=== PATIENT | female | born 1965 | race Caucasian/White ===

== ENCOUNTER 2020-02-10 08:37 | Outpatient (CLI) | payer OTHER, SELFPAY ==
--- NOTE | ~2020-02-10 | MM_ITS ---
EXAMINATION: MM screening corey BI w oscar HISTORY: Screening mammogram TECHNIQUE: Craniocaudal and mediolateral oblique 3-D tomosynthesis images were obtained and synthetic 2-D images were generated. CAD analysis was submitted and interpreted. COMPARISON: 03/27/2018, 08/16/2016, 09/23/2014 bilateral digital screening mammogram examinations BREAST PARENCHYMAL COMPOSITION: There are scattered areas of fibroglandular density. FINDINGS: Stable approximately 7 mm circumscribed mass in the inner mid right breast. There is no aliya dence of suspicious mass, calcification, or architectural distortion to suggest malignancy in either breast. There has been no suspicious interval change. IMPRESSION: 1. No mammographic evidence of malignancy. 2. Recommend routine screening mammography in one year. BI-RADS Category 2: Benign finding(s). Reviewed, dictated and finalized at location A.
== END 2020-02-10 08:38 | disposition home or self-care (01) ==
LOC: ANHIMG 08:40
PROVIDERS: Visit Provider Obstetrics & Gynecology
DX: Z12.31 Encounter for screening mammogram for malignant neoplasm of breast (principal)
CPT/HCPCS: 77063; 77067

== ENCOUNTER 2020-03-10 15:35 | Outpatient (CLI) | payer OTHER, SELFPAY ==
--- NOTE | ~2020-03-10 | CT_ITS ---
EXAMINATION: CT abdomen pelvis wo/w con DATE: 03/10/2020 16:45 INDICATION: Gross hematuria. TECHNIQUE: Computed tomography (CT) of the abdomen and pelvis was performed without and with intraven ous contrast using a total of 130 mL Omnipaque-350 intravenous contrast with a double-bolus technique for simultaneous opacification of the renal parenchyma and renal collecting system. Automated exposu re control and iterative reconstruction technique were employed. The dose-length product was 2270.09 mGy-cm. COMPARISON: CT abdomen and pelvis 05/01/2018 FINDINGS: The visualized portions of the lung bases demonstrate mild atelectasis. A calcified left lung nodule and calcified left hilar lymph nodes are consistent with old granulomatous disease. No pleural effusi on. Cardiomegaly is noted. No pericardial effusion. There is diffuse hepatic steatosis. There is a 14 mm cyst in the liver. The gallbladder, spleen, pancreas, and left adrenal gland are normal. There is a 16 mm mass in right adrenal gland without change, consistent with an adenoma. There is no urolithi asis. There are cysts in the kidneys measuring up to 2.4 cm on the right. The ureters and bladder are well opacified and are normal. There are no dilated loops of bowel. The appendix is normal. There ar e no pathologically enlarged lymph nodes. There is no free intraperitoneal fluid. There is mild lumba r spondylosis. IMPRESSION: 1. No etiology for hematuria. Reviewed, dictated and finalized at location A.
--- NOTE | ~2020-03-10 | XR_ITS ---
XR abdomen/kub 1V 03/10/2020 16:12 INDICATION: Gross hematuria TECHNIQUE: KUB COMPARISON: 05/01/2018 FINDINGS: Bowel gas pattern is normal. There is no evidence of free air, mass, organomegaly, ascites or obstruction. No abnormal calculi are seen. The bones appear intact. IMPRESSION: 1: No acute abdominal abnormality identified. Reviewed, dictated and finalized at location B.
[2020-03-10 16:23] LABS: Estimated Glomerular Filt Rate > 60
== END 2020-03-10 15:36 | disposition home or self-care (01) ==
PROVIDERS: Visit Provider Nurse Practitioner Adult Health
DX: R31.0 Gross hematuria (principal)
CPT/HCPCS: 74018; 74178; Q9967

== ENCOUNTER 2020-07-17 23:15 | Emergency (ER) | payer OTHER, SELFPAY ==
--- NOTE | ~2020-07-17 | CT_ITS ---
EXAMINATION: CT abdomen pelvis wo con DATE: 07/18/2020 00:43 INDICATION: Right back pain. Right-sided flank pain. TECHNIQUE: Computed tomography (CT) of the abdomen and pelvis was performed without intravenous contr ast. Automated exposure control and iterative reconstruction technique were employed. The dose-length product was 988.10 mGy-cm. COMPARISON: 03/10/2020 FINDINGS: Lung bases are clear. Heart size is normal. No pericardial or pleural effusion. 1.4 cm cyst in the ri ght hepatic lobe. Mild focal hepatic steatosis at the ligamentum teres. Decompressed gallbladder, spl een, pancreas and left adrenal gland are normal. No significant interval change in a 1.6 similar low- attenuation right adrenal adenoma. Couple right renal cysts the largest measuring 1.8 cm. No urolithi asis or hydronephrosis. Bowels including the appendix are normal with no wall thickening or obstructi on. Bladder is normal. The uterus is not identified and has likely been surgically resected. No free intraperitoneal gas or fluid. No pathologically enlarged abdominal or pelvic lymphadenopathy. Mild brandon mbar spondylosis. IMPRESSION: 1. No acute intra-abdominal/pelvic process. Specifically normal gallbladder and appendix and no uroli thiasis. Reviewed, dictated and finalized at location B. NING OPERATOR IMPRESSION: 1. No acute intra-abdominal/pelvic process. Specifically normal gallbladder and appendix and no urolithiasis.
[2020-07-17 23:20] VITALS: BP 167/87; PULSE 70; RESP 16; TEMP 36; O2SAT 100
[2020-07-18 00:02] LABS: Alanine Aminotransferase 36 U/L (4-35); Albumin Level 4.2 g/dL (3.5-5.1); Alkaline Phosphatase 93 U/L (38-126); Anion Gap 6 mmol/L (8-16); Aspartate Amino Transferase 32 U/L (14-36); Bilirubin,Total 0.4 mg/dL (0.2-1.3); Blood Urea Nitrogen 17 mg/dL (7-17); Calcium 9.4 mg/dL (8.4-10.2); Carbon Dioxide 34 mmol/L (22-30); Chloride 99 mmol/L (98-107); Estimated Glomerular Filt Rate > 60; Glucose 103 mg/dL (65-105); Lipase 171 U/L (23-300); Potassium 3.5 mmol/L (3.4-5.0); Sodium 139 mmol/L (137-145)
[2020-07-18 00:09] LABS: Basophils Absolute Auto 0.1 K/mm3 (0.0-0.1); Eosinophils Absolute Auto 0.4 K/mm3 (0-0.3); Eosinophils Percent Auto 3.9 % (0-4.4); Hemoglobin 14.5 g/dL (12.0-15.0); Immature Granulocyte Absolute 0.05 K/mm3 (0.00-0.031); Immature Granulocyte Percent A 0.5 % (0-0.5); Lymphocytes Percent Auto 34.4 % (18.3-44.2); Mean Corpuscular HGB Conc 34.5 g/dl (32-36); Mean Corpuscular Hemoglobin 32.2 pg (26-34); Mean Corpuscular Volume 93.1 fl (80-100); Mean Platelet Volume 9.7 fl (7.4-10.4); Monocytes Absolute Auto 0.8 K/mm3 (0.1-0.6); Monocytes Percent Auto 7.1 % (2.6-8.5); Neutrophils Absolute Auto 5.9 K/mm3 (1.3-6.7); Neutrophils Percent Auto 53.1 % (45.5-73.1); Platelet Count Result 328 k/mm3 (150-375); Red Blood Count 4.51 M/mm3 (4.2-5.4); Red Cell Distribution Width 12.2 % (11.5-14.5); White Blood Count 11.1 K/mm3 (4.5-10.0)
--- NOTE | 2020-07-18 00:16 | ED.GENADULT ---
HPI - General Adult General Chief complaint: Urogenital-Female Stated complaint: right flank pain Time Seen by Provider: 07/17/20 23:38 Source: patient History of Present Illness HPI narrative: Patient is a 55 y/o female complaining of chronic right back pain worsening today. She describes her pain as sharp and rates it as 10/10. There is no pain radiation. She states that Ibuprofen did not help with the pain. Movement worsens her pain. She has been having blood in urine for while. She states that she has been seeing a urologist and no definitive cause has been found for her symptoms. She had CT scan and cystoscopy done in the past. She states that she was prescribed an antibiotic by her doctor for UTI today. Related Data Allergies Allergy/AdvReac Type Severity Reaction Status Date / Time PCN Allergy Mild Uncoded 04/20/08 19:36 Review of Systems Constitutional: Constitutional: Denies chills, Denies fever(s), Denies headache(s) and Denies weakness Eyes: Eyes: Denies blurry vision ENT: Denies headache(s) and Denies neck pain Cardiovascular: Cardiovascular: Denies chest pain and Denies dyspnea Respiratory: Respiratory: Denies cough and Denies dyspnea Gastrointestinal: Gastrointestinal: Denies abdominal pain, Denies diarrhea, Denies nausea and Denies vomiting Genitourinary: Genitourinary: Reports hematuria and Denies dysuria Musculoskeletal: Musculoskeletal: Reports back pain and Denies neck pain Neurologic: Denies headache(s) and Denies weakness Exam Const: General: no acute distress and well developed Orientation/consciousness: oriented to person, oriented to place, oriented to time and patient oriented x3 HENMT: Head: normocephalic Ears: external ears normal General nose exam: Normal external nose present Eyes: General: appearance normal, both eyes and all related structures Conjunctivae: conjunctivae normal Neck: Neck: normal visual inspection and full ROM Chest: Chest palpation & inspection: normal inspection of the chest and no tenderness Resp: Effort & Inspection: normal respiratory effort Auscultation: clear to auscultation bilaterally Cardio: Rate: regular rate Rhythm: regular rhythm GI: GI Palp: No abdominal tenderness and Yes Soft to palpation Skin: General skin exam: normal color and turgor normal Neuro: General: oriented to person, oriented to place, oriented to time and patient oriented x3 Cognition (Neuro): normal cognition Extrem: General: normal to inspection, full ROM and no pedal edema Psych: Appearance: grossly normal Mental Status: mental status grossly normal Affect: normal affect Course Vital Signs Vital signs: Vital Signs Temperature 36.0 C L 07/17/20 23:20 Pulse Rate 70 07/17/20 23:20 Respiratory Rate 16 07/17/20 23:20 Blood Pressure 167/87 H 07/17/20 23:20 Pulse Oximetry 100 07/17/20 23:20 Temperature 36.0 C L 07/17/20 23:20 Pulse Rate 100 07/18/20 01:40 Respiratory Rate 17 07/18/20 01:40 Blood Pressure 147/74 H 07/18/20 01:40 Pulse Oximetry 99 07/18/20 01:40 Medical Decision Making Vital Signs Vital Signs: Vital Signs Temperature 36.0 C L 07/17/20 23:20 Pulse Rate 70 07/17/20 23:20 Respiratory Rate 16 07/17/20 23:20 Blood Pressure 167/87 H 07/17/20 23:20 Pulse Oximetry 100 07/17/20 23:20 Temperature 36.0 C L 07/17/20 23:20 Pulse Rate 100 07/18/20 01:40 Respiratory Rate 17 07/18/20 01:40 Blood Pressure 147/74 H 07/18/20 01:40 Pulse Oximetry 99 07/18/20 01:40 Lab Data Result diagrams: 07/17/20 23:41 07/17/20 23:41 Labs: Lab Results 07/17/20 07/17/20 07/18/20 Range/Units 23:41 23:41 00:21 WBC 11.1 H (4.5-10.0) K/mm3 RBC 4.51 (4.2-5.4) M/mm3 Hgb 14.5 (12.0-15.0) g/dL Hct 42.0 (37.0-47.0) % MCV 93.1 (80-100) fl MCH 32.2 (26-34) pg MCHC 34.5 (32-36) g/dl RDW 12.2 (11.5-14.5) % Plt Count 328 (150-375) k/mm3 MPV
[2020-07-18] MEDS: KETOROLAC 15 MG/ML VIAL (*BKC) IV PUSH (00:33)
[2020-07-18] MEDS: CYCLOBENZAPRINE HCL 10 MG TABLET PO (00:33)
[2020-07-18 00:38] LABS: Add Urine Microscopic? NO; Appearance Urine Clear (Clear); Bacteria Urine 4+ /hpf; Bilirubin Urine Negative (Negative); Blood Urine Negative (Negative); Color Urine Yellow (Yellow); Glucose Urine UA Negative (Negative); Ketones Urine Negative (Negative); Leukocyte Esterase Ur Negative LEU/UL (Negative); Mucus Urine Rare /lpf; Nitrate Urine Negative (Negative); Protein Urine Negative (Negative); RBC Urine 0-2 /hpf (0-2); Specific Grav Ur 1.011 (1.001-1.035); Squamous Epithelial Cell Urine Rare /hpf (Few); Urobilinogen Urine Negative mg/dL (<2.0)
--- NOTE | 2020-07-18 00:47 | PC.NURSE ---
Pt. reports having a partial hysterectomy and gives consent for ct
[2020-07-18 01:00] VITALS: BP 144/88; PULSE 88; RESP 14; O2SAT 97
[2020-07-18] MEDS: diazePAM INJ (*CRX) 10 MG/2 ML SYRINGE 5 MG IV PUSH (01:36)
[2020-07-18 01:40] VITALS: BP 147/74; PULSE 100; RESP 17; O2SAT 99
== END 2020-07-18 01:40 | disposition home or self-care (01) ==
PROVIDERS: Emergency Medicine; Emergency Provider Emergency Medicine; PCP Family Medicine
DX: N39.0 Urinary tract infection, site not specified (principal); M54.5 Low back pain; G89.29 Other chronic pain
CPT/HCPCS: 36415; 74176; 80053; 81003; 83690; 85025; 87077; 87086; 87088; 87147; 87186; 96374; 96375; 99284; A9270; J1885; J3360

== ENCOUNTER 2022-01-19 21:29 | Emergency (ER) | payer OTHER, SELFPAY ==
--- NOTE | ~2022-01-19 | XR_ITS ---
EXAMINATION: XR chest 2V DATE: 01/19/2022 21:54 INDICATION: Retention and chest pressure TECHNIQUE: PA and lateral views of the chest were obtained. COMPARISON: Chest radiograph dated 10/29/2018 FINDINGS: The lungs remain clear with no focal airspace opacities, pulmonary edema, pleural effusion or pneumot horax. The cardiomediastinal silhouette is normal. Chronic mild anterior wedging of a couple mid thor acic vertebral bodies with moderate spondylosis. IMPRESSION: 1. No acute cardiopulmonary disease. Reviewed, dictated and finalized at location A.
[2022-01-19 21:31] VITALS: BP 152/73; PULSE 64; RESP 18; TEMP 36.5; O2SAT 100
--- NOTE | 2022-01-19 21:38 | ECG_ITS ---
Measurements Intervals [place] Rate: 61 P: 34 FL: 168 QRS: 34 QRSD: 97 T: 45 QT: 410 QTc: 416 Interpretive Statements SINUS RHYTHM BORDERLINE ST ABNORMALITY- INF/LAT LEADS BASELINE WANDER- II, III BORDERLINE ECG Electronically Signed On 01-20-2022 8:07:17 CDT by Christ Esparza D.O.
[2022-01-19 22:01] LABS: Basophils Absolute Auto 0.1 K/mm3 (0.0-0.1); Basophils Percent Auto 0.9 % (0.2-1.2); Eosinophils Absolute Auto 0.4 K/mm3 (0-0.3); Hematocrit 43.8 % (37.0-47.0); Hemoglobin 14.8 g/dL (12.0-15.0); Immature Granulocyte Absolute 0.04 K/mm3 (0.00-0.031); Immature Granulocyte Percent A 0.4 % (0-0.5); Lymphocytes Absolute Auto 3.36 K/mm3 (0.9-3.2); Lymphocytes Percent Auto 31.6 % (18.3-44.2); Mean Corpuscular HGB Conc 33.8 g/dl (32-36); Mean Corpuscular Hemoglobin 31.5 pg (26-34); Mean Corpuscular Volume 93.2 fl (80-100); Mean Platelet Volume 9.3 fl (7.4-10.4); Monocytes Absolute Auto 0.8 K/mm3 (0.1-0.6); Monocytes Percent Auto 7.1 % (2.6-8.5); Neutrophils Absolute Auto 5.9 K/mm3 (1.3-6.7); Platelet Count Result 363 k/mm3 (150-375); Red Cell Distribution Width 12.7 % (11.5-14.5); White Blood Count 10.6 K/mm3 (4.5-10.0)
[2022-01-19 22:12] LABS: INR 0.9; Prothrombin Time 12.2 Seconds (11.1-14.7)
[2022-01-19 22:13] LABS: Partial Thromboplastin Time 30.8 SECONDS (22.3-36.8)
[2022-01-19 22:14] LABS: Alanine Aminotransferase 34 U/L (6-35); Albumin Level 4.6 g/dL (3.5-5.1); Alkaline Phosphatase 97 U/L (38-126); Anion Gap 9 mmol/L (8-16); Aspartate Amino Transferase 28 U/L (14-36); Bilirubin,Total 0.6 mg/dL (0.2-1.3); Blood Urea Nitrogen 20 mg/dL (7-17); Calcium 9.7 mg/dL (8.4-10.2); Carbon Dioxide 33 mmol/L (22-30); Chloride 97 mmol/L (98-107); Estimated CRCL calculation 102 ml/min; Estimated Glomerular Filt Rate > 60; Glucose 113 mg/dL (65-110); Lipase 162 U/L (23-300); Potassium 3.1 mmol/L (3.4-5.0); Sodium 139 mmol/L (137-145)
[2022-01-19 22:26] LABS: Troponin I < 0.012 ng/mL (0.000-0.034)
[2022-01-19 22:34] VITALS: BP 178/92; PULSE 64; RESP 19; O2SAT 99
--- NOTE | 2022-01-19 22:57 | ED.CHESTPAIN ---
HPI - Chest Pain General Chief Complaint: Recheck/Abnormal Lab/Rx Stated Complaint: high bp, headache blurred vision Time Seen by Provider: 01/19/22 22:32 History of Present Illness HPI narrative: Patient is a 56-year-old female complaining of chest tightness, 6 out of 10, nonradiating accompanied by elevated blood pressure and headache started 2 days ago. Patient states that her headache is mild and usually happens when her blood pressure is elevated. Pt states that she is been under a lot of stress lately. Patient denies shortness of breath, abdominal pain, nausea, vomiting, diaphoresis, fever or chills. Related Data Home Medications Medication Instructions Recorded Confirmed hydrochlorothiazide 25 mg tablet mg 01/19/22 Allergies Allergy/AdvReac Type Severity Reaction Status Date / Time PCN Allergy Mild Uncoded 04/20/08 19:36 Review of Systems Review of Systems: All systems reviewed & are unremarkable except as noted in HPI and below Constitutional: Constitutional: Denies body ache(s), Denies chills, Denies excessive sweating, Denies fatigue, Denies fever(s), Denies headache(s), Denies lethargy, Denies malaise, Denies weakness and Denies weight loss Eyes: Eyes: Denies blurry vision, Denies change in vision and Denies loss of vision ENT: Denies dizziness, Denies ear discharge, Denies headache(s), Denies lip swelling, Denies epistaxis, Denies nasal congestion, Denies neck pain, Denies throat swelling and Denies tongue swelling Cardiovascular: Cardiovascular: Denies diaphoresis, Denies rapid heart rate, Denies edema, Denies irregular heart rhythm, Denies lightheadedness, Denies palpitations, Denies dyspnea and Denies dyspnea on exertion Respiratory: Respiratory: Denies chest congestion, Denies cough, Denies hemoptysis, Denies dyspnea and Denies dyspnea on exertion Gastrointestinal: Gastrointestinal: Denies abdominal pain, Denies melena, Denies hematochezia, Denies diarrhea, Denies nausea, Denies vomiting and Denies hematemesis Musculoskeletal: Musculoskeletal: Denies abnormal gait, Denies deformity, Denies joint swelling, Denies limited range of motion, Denies neck pain and Denies numbness Neurologic: Denies Abnormal speech present, Denies abnormal gait, Denies confusion, Denies dizziness, Denies focal weakness, Denies loss of vision, Denies numbness, Denies Other visual disturbances, Denies Sensory deficit (Neuro) and Denies weakness Psychiatric: Psychiatric: Denies confusion, Denies depression, Denies auditory hallucinations, Denies homicidal ideation and Denies suicidal ideation Endocrine: Endocrine: Denies cold intolerance, Denies excessive sweating, Denies fatigue, Denies heat intolerance and Denies palpitations Hematologic/Lymphatic: Hematologic/Lymphatic: Denies easy bleeding and Denies easy bruising Allergic/Immunologic: Allergic/Immunologic: Denies lip swelling, Denies throat swelling and Denies tongue swelling Exam Const: General: cooperative, healthy appearing, comfortable, no acute distress, well developed, alert and awake; No confusion Orientation/consciousness: oriented to person, oriented to place, oriented to time, patient oriented x3 and No confusion Limitations: no limitations HENMT: Head: normal to inspection, normocephalic and atraumatic Ears: hearing grossly normal bilaterally, TM normal on the right and TM normal on the left General nose exam: Normal external nose present, Normal nares present and No nasal discharge present Face and sinus: normal facial exam Mouth: Yes Normal oral and palatal mucosa present, Yes lip normal, Yes tongue normal and Yes oropharynx normal Throat: posterior oropharynx normal, tonsils normal and uvula midline Eyes: General: appearance normal, both eyes and all related structures Pupils: Equal, round and reactive pupils present EOM: EOMs intact bilaterally Neck: Neck: normal visual inspection, full ROM, no lymphadenopathy and no meningeal signs Chest: Chest palpation &
[2022-01-19 23:02] VITALS: BP 151/94; PULSE 64; RESP 15; O2SAT 100
[2022-01-19 23:32] VITALS: BP 163/74; PULSE 65; RESP 17; O2SAT 100
[2022-01-20] MEDS: ASPIRIN 81 MG CHEWABLE TABLET 324 MG PO (00:01)
[2022-01-20] MEDS: POTASSIUM CHLORIDE 20 MEQ TABLET PO (00:05)
[2022-01-20 01:19] VITALS: BP 164/96; PULSE 114; RESP 20; O2SAT 100
== END 2022-01-20 01:10 | disposition left against medical advice (07) ==
PROVIDERS: Emergency Provider Emergency Medicine; PCP Family Medicine
DX: R07.89 Other chest pain (principal); R51.9 Headache, unspecified; R94.31 Abnormal electrocardiogram [ECG] [EKG]
CPT/HCPCS: 36415; 71046; 80053; 83690; 84484; 85025; 85610; 85730; 93005; 99284; A9270

== ENCOUNTER 2022-02-12 08:04 | Outpatient (CLI) | payer OTHER, SELFPAY ==
--- NOTE | ~2022-02-12 | MM_ITS ---
EXAMINATION: MM screening corey BI w oscar HISTORY: Screening TECHNIQUE: Craniocaudal and mediolateral oblique 3-D tomosynthesis images were obtained and synthetic 2-D images were generated. CAD analysis was submitted and interpreted. COMPARISON: Comparison to multiple prior studies sequentially, with oldest reviewed study dated 05/24. BREAST PARENCHYMAL COMPOSITION: Breast composed of scattered areas of fibroglandular density FINDINGS: Stable benign right breast mass in the lower inner quadrant. There is no evidence of suspic ious mass, calcification, or architectural distortion to suggest malignancy in either breast. There h as been no suspicious interval change. IMPRESSION: 1. No mammographic evidence of malignancy. 2. Recommend routine screening mammography in one year. BI-RADS Category 2: Benign finding(s). Reviewed, dictated and finalized at location A.
== END 2022-02-12 08:05 | disposition home or self-care (01) ==
PROVIDERS: PCP Family Medicine; Visit Provider Obstetrics & Gynecology
DX: Z12.31 Encounter for screening mammogram for malignant neoplasm of breast (principal)
CPT/HCPCS: 77063; 77067

== ENCOUNTER 2022-06-28 10:23 | Outpatient (CLI) | payer OTHER, SELFPAY ==
--- NOTE | ~2022-06-28 | MMUS_ITS ---
EXAMINATION: MM diagnostic corey RT w oscar, US breast RT limited HISTORY: Palpable lump at the 12:00 location of the right breast TECHNIQUE: Craniocaudal, mediolateral, and mediolateral oblique 3-D tomosynthesis images of the right breast were performed and synthetic 2-D images were generated. CAD analysis was submitted and interp reted. High resolution limited right breast ultrasound was performed. COMPARISON: 02/12/2022, 02/10/2020, 03/27/2018, 08/16/2016 BREAST PARENCHYMAL COMPOSITION: There are scattered areas of fibroglandular density. FINDINGS: MAMMOGRAPHIC FINDINGS: No suspicious mass, calcification, or architectural distortion are identified to suggest malignancy. There has been no suspicious interval change. No mammographic correlate is identified for the reporte d palpable abnormality of the right breast. A stable mass in the lower inner breast is considered susie ign given the lack of interval change. ULTRASOUND: There is no evidence of focal abnormal solid or cystic mass in the vicinity of the reported palpable abnormality of concern. IMPRESSION: 1. No specific mammographic or sonographic correlate is identified for the reported palpable abnormal ity of concern. Further evaluation at this time should be based on clinical assessment. Continued fol low-up physical examination is recommended. 2. Routine screening mammography is recommended. BI-RADS Category 2: Benign finding(s). Reviewed, dictated and finalized at location A. SPERSON FLORIST SUPPLIES IMPRESSION: 1. No specific mammographic or sonographic correlate is identified for the repo rted palpable abnormality of concern. Further evaluation at this time should be based on clinical assessment. Continued follow-up physical examination is xu mmended. 2. Routine screening mammography is recommended. BI-RADS Category 2: Benign finding(s).
== END 2022-06-28 10:24 | disposition home or self-care (01) ==
PROVIDERS: PCP Family Medicine; Visit Provider Family Medicine
DX: N63.11 Unspecified lump in the right breast, upper outer quadrant (principal)
CPT/HCPCS: 76642; 77061; 77065; G0279

== ENCOUNTER 2022-07-26 09:06 | Outpatient (CLI) | payer OTHER, SELFPAY ==
--- NOTE | ~2022-07-26 | US_ITS ---
EXAMINATION: US retroperitoneal comp DATE: 07/26/2022 09:55 INDICATION: Pelvic pain. TECHNIQUE: Multiple ultrasound grayscale images of the kidneys were obtained. COMPARISON: None. FINDINGS: The right kidney measures 10.6 x 6.9 x 5.4 cm. The left kidney measures 14.3 x 6.4 x 7.5 cm. 2.2 x 1. 4 cm anechoic cyst at the lower pole of the right kidney which appears unchanged since CT urogram jerome ed 03/10/2020 at which time there is no evident contrast enhancement within the cyst to suggest a gatito ceal diverticulum. There is a 6 mm shadowing calcific location along side the cyst which could repres ent a renal stone or potentially milk of calcium within the cyst. No hydronephrosis in either kidney. The kidneys demonstrate normal echogenicity. The bladder is normal with bilateral ureteral jets visu alized on color Doppler. IMPRESSION: 1. 6 mm calcification along side a 2.2 cm cyst in the lower pole of the right kidney which could rep resent either a renal stone or small collection of calcification within the cyst. Otherwise normal ki dneys with no hydronephrosis. Reviewed, dictated and finalized at location A. TRUCTION ANALYST IMPRESSION: 1. 6 mm calcification along side a 2.2 cm cyst in the lower pole of the right kidney which could represent either a renal stone or small collection of calcif ication within the cyst. Otherwise normal kidneys with no hydronephrosis.
== END 2022-07-26 09:07 | disposition home or self-care (01) ==
LOC: ANHIMG 09:10
PROVIDERS: PCP Family Medicine; Visit Provider Nurse Practitioner Adult Health
DX: R10.2 Pelvic and perineal pain (principal); N28.1 Cyst of kidney, acquired
CPT/HCPCS: 76770